=== PATIENT | male | born 1970 | race Caucasian/White ===

== ENCOUNTER 2023-04-30 06:18 | Observation (INO) ==
--- NOTE | 2023-03-20 11:22 | PAT Medication Instructions ---
Medication Instructions Date of Service March 20, 2023 Home Medications multivitamin (Daily Multi-Vitamin tablet) 1 tab PO QAM lisinopril 20 mg-hydrochlorothiazide 25 mg tablet 1 tab PO QAM bupropion HCl 300 mg 24 hr tablet, extended release 300 mg PO QAM ibuprofen 200 mg tablet 400 mg PO QAM PRN Pain ASK your surgeon for instructions ibuprofen 200 mg tablet 400 mg PO QAM PRN Pain DO NOT take the morning of surgery multivitamin (Daily Multi-Vitamin tablet) 1 tab PO QAM lisinopril 20 mg-hydrochlorothiazide 25 mg tablet 1 tab PO QAM Take morning of surgery With a small sip of water, OTHERWISE NOTHING TO EAT OR DRINK AFTER MIDNIGHT: bupropion HCl 300 mg 24 hr tablet, extended release 300 mg PO QAM Other Notes If you have any questions please call us at [phone] or [phone] or [phone] or [phone]
--- NOTE | 2023-04-01 09:20 | Anesthesiology Consultation ---
Date of Service April 01, 2023 Assessment & Plan (1) Encounter for pre-operative examination: - Infectious disease screening: Per assessment on 04/01/23: No known infectious disease contacts or current infectious disease symptoms. No noted recent Covid positive test result. - Outpatient joint assessment: Pt currently scheduled for inpatient pathway. If surgeon requests review for outpatient joint pathway, patient is not recommended candidate for outpatient joint program from anesthesia standpoint. Chart Review Chart Review: Acceptable Risk for Surgery and Patient seen in Pre Admission Testing Teaching & Discussion Pre-Anesthesia Teaching/Discussion Notes: Instructed NPO after midnight before surgery,except medications with 15 cc of water. Medication instructions provided according to the PAT guidelines. History Surgery Operation Date: 04/30/23 08:00 Proposed Procedures p Left Total Knee Arthroplasty - Naveen Winston DO Height/Weight Height: 5 ft 6 in Weight: 127.2 kg Allergies Allergy/AdvReac Type Severity Reaction Status Date / Time sulfamethoxazole Allergy Unknown blisters Verified 03/20/23 08:02 [From Bactrim] trimethoprim [From Bactrim] Allergy Unknown blisters Verified 03/20/23 08:02 Medications Home Medications Medication Instructions Recorded Confirmed Last Taken multivitamin (Daily Multi-Vitamin 1 tab PO QAM 11/10/18 03/20/23 10/02/20 tablet) lisinopril 20 1 tab PO QAM 10/02/20 03/20/23 10/02/20 mg-hydrochlorothiazide 25 mg tablet bupropion HCl 300 mg 24 hr tablet, 300 mg PO QAM 03/20/23 03/20/23 Unknown extended release ibuprofen 200 mg tablet 400 mg PO QAM PRN Pain 03/20/23 03/20/23 Unknown Past Medical History Medical History Morbid obesity Post traumatic stress disorder related to history Depression Anxiety Hypertension Exercise / Class Metabolic Activity II 4-5 Yardwork/Stairs/Walk up hill (one FS (no CP, no SOB)) Past Family History Family History Grandmother Breast cancer Grandfather Myocardial infarction Mother Kidney stones Father Hypertension Seizure Past Surgical History Surgical History Hx of umbilical hernia repair History of arthroscopy of both knees H/O wrist surgery right Past Anesthesia History No Hx of Anesthesia Complications and No Family Hx of Anesthesia Complications History of PONV No Hx of PONV and No Hx of Motion Sickness Social History Smoking Status: Never smoker Do You Dip or Chew Tobacco: Yes (Planning to quit 2 weeks prior to surgery- advised none DOS) Hx Alcohol Use: Yes alcohol intake frequency: holidays/special occasions only Hx Substance Use: No Review of Systems Patient denies chest pain, shortness of breath, dyspnea on exertion, fever, chills, cough, wheezing, palpitations. Physical Exam Vital Signs VITALS BP 145/84 P 98 TEMP 99.2 SP02 95%RA RESP 18 PHYSICAL Full cervical extension range of motion. Full TMJ range of motion. TMD 3 finger breaths Mallampati Score 1 Dentition: upper right side tooth + molars missing Lungs: clear throughout to auscultation Cardiac: regular rate and rhythm, no murmurs noted Spine: normal Carotid arteries: negative bruit Extremities: no LE edema Short, thick neck Lab Results Anesthesia Preop Results Results Anesthesia Widget: WBC 6.71 K/ul (4.8-10.8) 04/01/23 Hgb 15.9 g/dl (14.0-18.0) 04/01/23 Hct 48.0 % (42.0-52.0) 04/01/23 Plt 262 K/uL (130-400) 04/01/23 Na 139 mmol/L (136-145) 04/01/23 K 3.7 mmol/L (3.5-5.1) 04/01/23 Cl 102 mmol/L (98-107) 04/01/23 CO2 28 mmol/L (21-32) 04/01/23 BUN 25 mg/dl (6-23) H 04/01/23 Creat 0.90 mg/dl (0.6-1.4) 04/01/23 Glucose Level 130 mg/dl (70-99(Fasting)) H 04/01/23 PT 11.6 Seconds (9.0-12.0) 04/01/23 PTT 27 Seconds (21-31) 04/01/23 INR 1.1 (0.9-1.1) 04/01/23 HA1c 5.6 % (4.5-5.6) 04/01/23 Urine Color Yellow 04/01/23 Urine Appearance Clear (Clear) 04/01/23 Urine pH 6.5 (4.5-7.5) 04/01/23 Urine Specific Downs 1.013 (1.000-1.030) 04/01/23 Urine Protein Negative (Negative) 04/01/23 Urine Glucose (UA) Negative (Negative) 04/01/23 Urine Ketones Negative (Negative) 04/01/23 Urine Blood Negative (Negative) 04/01/23 Urine Nitrite Negative (Negative) 04/01/23 Urine Bilirubin Negative (Negative) 04/01/23 Urine Urobilinogen Negative (Negative) 04/01/23 Urine Leukocyte Esterase Trace (Negative) H 04/01/23 Urine WBC (Auto) 1-5 /hpf (0-5) 04/01/23 Urine RBC (Auto) 0-4 /hpf (0-4) 04/01/23 Urine Hyaline Casts (Auto) 0 /lpf (0-5) 04/01/23 Urine Epithelial Cells (Auto) 0-5 /lpf (0-5) 04/01/23 Urine Bacteria (Auto) Negative (Negative) 04/01/23 Blood Type B Positive 04/01/23 Antibody Screen NEGATIVE 04/01/23 Testing Electrocardiogram Date: 04/01/23 Findings: + NSR @ (97) Chest X-Ray Date: 04/01/23 FINDINGS: Lung volumes are normal. Lungs are clear. There is no pneumothorax or pleural effusion. There is mild cardiomegaly. Mediastinal contours are normal. There is no evidence for pulmonary edema. IMPRESSION: No acute cardiopulmonary findings. Stress Test Date: 04/03/20 Type: exercise Stress echo negative for inducible ischemia. Exercise capacity is average. No significant valvular heart disease noted on the resting study. 93% MPHR. 8.2 METS. LVEF 55-59%. LV wall motion is normal. No significant valvular disease.
--- NOTE | 2023-04-01 13:03 | History & Physical Report ---
Date of Service April 01, 2023 date of surgery: 04/30/23 Procedure: Left Total Knee Arthroplasty Surgeon: Naveen Winston DO Assessment & Plan (1) Arthritis of knee, left: Plan: Patient presented today for preop evaluation prior to his upcoming left total kn ee arthroplasty. Scheduled for an overnight stay at [facility] with discharge home the following day with home health physical therapy. Will place him on aspirin 81 mg twice a day for 1 month postop, follow-up in the office 2 weeks after surgery or sooner if he is having any issues. He otherwise has no other questions or concerns The risks and benefits have been discussed including, but not limited to, risk of infection, nerve injury, stiffness, loss of motion, failure to improve, etc. Reasonable outcomes and options of treatment were discussed. An explanation of appropriate alternatives to the procedure that may be advantageous were discussed and their risks and benefits, as well as the risks and benefits of not proceeding with treatment. I offered to answer any additional inquiries concerning the treatment involved. All the patient's questions were answered. The patient is agreeable, understanding of the treatment plan and alternatives, and wishes to proceed with the treatment plan. Please note the above document was generated using voice recognition software. It may contain grammatical, syntax or spelling errors. Any formal questions or concerns about the content, text or information contained within the body of this dictation should be directly addressed to the provider for clarification History of Present Illness Chief Complaint: left knee pain Primary Care Provider: Rajat Martini DO Morteza is a pleasant 53-year-old male who presented for preop evaluation prior to his upcoming left total knee arthroplasty. He has a longstanding history of left knee pain which gradually worsened and is now affecting his daily activities including walking standing using stairs. He had an injury to the knee approximate 40 years ago while playing baseball but over time is gradually worsened. He has been getting cortisone injections but these have stopped providing any relief. He has tried oral anti-inflammatories and Tylenol. At this point time is failed conservative measures and wished to proceed with a left total knee arthroplasty Allergies Allergy/AdvReac Type Severity Reaction Status Date / Time sulfamethoxazole Allergy Unknown blisters Verified 03/20/23 08:02 [From Bactrim] trimethoprim [From Bactrim] Allergy Unknown blisters Verified 03/20/23 08:02 Home Medications Medication Instructions Recorded Confirmed Type multivitamin (Daily Multi-Vitamin 1 tab PO QAM 11/10/18 03/20/23 History tablet) lisinopril 20 1 tab PO QAM 10/02/20 03/20/23 History mg-hydrochlorothiazide 25 mg tablet bupropion HCl 300 mg 24 hr tablet, 300 mg PO QAM 03/20/23 03/20/23 History extended release ibuprofen 200 mg tablet 400 mg PO QAM PRN Pain 03/20/23 03/20/23 History Past Med/Surg History Medical History Morbid obesity Post traumatic stress disorder related to history Depression Anxiety Hypertension Surgical History Hx of umbilical hernia repair History of arthroscopy of both knees H/O wrist surgery right Family History Grandmother Breast cancer Grandfather Myocardial infarction Mother Kidney stones Father Hypertension Seizure Social History Smoking Status: Never smoker Second Hand Exposure: No; Do You Dip or Chew Tobacco: Yes (Planning to quit 2 weeks prior to surgery- advised none DOS); Hx Alcohol Use: Yes Hx Substance Use: No Preferred Language: [place] Painting Technician Required: No Beliefs That Will Affect Care: None Current Living Situation: Spouse Feels Safe at Home: Yes Assistive Devices: Contacts and Glasses Review of Systems Review of Systems: All systems reviewed & are unremarkable except as noted in HPI & below Constitutional: no fever, no chills and no sweats Respiratory: no cough and no dyspnea Cardiovascular: no chest pain, no dyspnea and no orthopnea Gastrointestinal: no abdominal pain, no nausea and no vomiting Musculoskeletal: as per Subjective / HPI Physical Exam Physical Exam: HT: 5ft 6in WT: 127 kg Constitutional: WD/WN, vitals as above no acute distress Respiratory: normal respiratory effort, lungs clear to auscultation no respiratory distress, no labored breathing and does not use accessory muscles Cardiovascular: RRR, no murmur, no edema Gastrointestinal (Abdomen): normal bowel sounds, soft, nontender, no hepatosplenomegaly Musculoskeletal: Knee: + knee abnormal to inspection (LEFT KNEE: ), + effusion (+1 effusion), + limited ROM of knee (ROM 0/3/110), + knee ROM with crepitation, + joint line tenderness (medial joint line) and + Rachid's sign positive; no deformity, no skin erythema, no ecchymosis, no valgus laxity, no varus laxity, anterior drawer test negative, Augusto's sign negative and pivot shift test negative Results & Data Results & Data Diagnostic Findings Left Knee X-ray: left knee series confirm advanced degenerative changes to the left knee, greatest medial compartments and patellofemoral joint, showing joint space narrowing, osteophyte formation and subchondral sclerosis. no acute bony pathology noted.
[2023-04-30] MEDS ORDERED: BUPIVACAINE 0.5 % 5 MG/1 ML PF 10ML VIAL ONE (06:23)
[2023-04-30] MEDS ORDERED: BUPIVACAINE 0.25% PF 30 ML VIAL ONE (06:24)
[2023-04-30] MEDS: ACETAMINOPHEN 500 MG TAB PO SCH ×2 (06:53→13:40)
[2023-04-30] MEDS: METOCLOPRAMIDE HCL 10 MG TABLET PO SCH (06:53)
[2023-04-30] MEDS: dexAMETHasone**PF** 10 MG/ML VIAL IV SCH (06:53)
[2023-04-30] MEDS: GABAPENTIN 300 MG CAP PO SCH (06:53)
[2023-04-30] MEDS: FAMOTIDINE 20 MG TAB PO SCH (06:53)
[2023-04-30] MEDS: LR 60ML/HR IV SCH (06:54)
--- NOTE | 2023-04-30 06:59 | History & Physical Bridge Note ---
Date of Service April 30, 2023 History & Physical Bridge Note I have examined the patient, reviewed the History & Physical and in the interval since the performance of the History & Physical I have noted the following changes of clinical significance: no changes noted
[2023-04-30] MEDS ORDERED: ONDANSETRON INJ 2 MG/ML 2 ML VIAL ONE (07:22)
[2023-04-30] MEDS ORDERED: fentaNYL citrate PF 100 MCG/2 ML VIAL ONE (07:22)
[2023-04-30] MEDS ORDERED: MIDAZOLAM HCL 1 MG/ML 2ML VIAL ONE ×2 (07:22→08:32)
[2023-04-30] MEDS ORDERED: PROPOFOL IV EMULSION 10 MG/ML 20 ML VIAL IV ONE ×2 (07:22)
[2023-04-30] MEDS ORDERED: LIDOCAINE 2% 2 ML VIAL/AMP(20MG/ML) INFIL ONE (07:22)
[2023-04-30] MEDS ORDERED: DEXAMETHASONE SOD INJ 4 MG/ML VIAL ONE (07:22)
[2023-04-30] MEDS: LR 500ML BOLUS, THEN 15ML/HR IV SCH (07:22)
[2023-04-30] MEDS ORDERED: fentaNYL citrate PF 100 MCG/2 ML VIAL IV PRN (07:50)
[2023-04-30] MEDS ORDERED: ONDANSETRON INJ 2 MG/ML 2 ML VIAL IV PRN ×2 (07:50→11:37)
[2023-04-30] MEDS ORDERED: ePHEDrine sulfate 50 MG/ML AMP IV PRN (07:50)
[2023-04-30] MEDS ORDERED: ATROPINE SULFATE 0.1 MG/ML 10ML SYR IV PRN (07:50)
[2023-04-30] MEDS: TRANEXAMIC ACID 1,000 MG **IV Pre-op IV SCH (08:05)
[2023-04-30] MEDS: ROPIV 0.5% 246mg, Ketorolac 30mg, EPINEPHrine 0.5mg in NSS INFIL SCH (08:52)
[2023-04-30] MEDS: ORTHO JOINT ANESTHETIC ONE (08:52)
[2023-04-30] MEDS ORDERED: PHENYLEPHRINE 100MCG/ML 10ML SYR IV ONE (08:57)
[2023-04-30] MEDS: TRANEXAMIC ACID 1,000 MG **IV Intra-op IV SCH (09:40)
--- NOTE | 2023-04-30 09:41 | Operative Report ---
Post Operative Report Pre & Post Diagnosis Operation Date: 04/30/23 08:00 Pre-Op Diagnosis: Left Knee Osteoarthritis Post-Op Diagnosis: Left Knee Osteoarthritis I identified the patient and participated in the time-out.: Yes Procedure Operation Date: 04/30/23 08:00 Actual Procedures p Left Total Knee Arthroplasty(Left)Utilizing [employer] journey 2 patient- matched total knee arthroplasty size femur 4 tibia 4 poly 15 patella 32 parth - Naveen Winston DO Surgeon Naveen Winston DO Manpower Development Manager Sunny BURNHAM Estimated Blood Loss 5 Findings Consistent with Post-Op Diagnosis Patient presents with severe end-stage degenerative joint disease of the left knee nonresponse to conservative management patient has approximate 10 to be degree hyperextension angle to his knee with recurvatum is eburnated bone -on-bone marginal osteophytes subchondral sclerosis eburnated bone to bone with a moderate to large osteophytes and a moderate to large effusion Specimens Bone card cartilage Drains Medium bore Hemovac Anesthesia Type MAC Spinal Regional Complications none Disposition Accompanied Patient To Recovery: No Disposition: Recovery Room Indications Patient presents with severe end-stage tricompartmental degenerative joint disease of the left knee nonresponse to conservative management patient failed attempted corticosteroid injection viscosupplementation relative rest activity modification above intraoperative findings were noted Description of Procedure After proper prepping and draping of the left lower extremity anterior midline incision was made over the region of the extensor extensor mechanism after meticulous hemostasis was obtained and maintained in subcutaneous tissues a medial parapatellar incision was made The patella was subluxed lateralward the medial lateral gutter were cleaned from any hypertrophic synovitis and scar tissue of the distal femoral block was placed and the distal femoral osteotomy cut was made subsequently the chamfers anterior and posterior osteotomy cuts were made utilizing the 4-in-1 block the tibia was subsequently subluxed anteriorward medial and ateral meniscal remnants were excised in their entirety remnants of the anterior and posterior cruciate ligaments were excised in their entirety excellent exposure of the proximal tibia was obtained the tibial osteotomy guide was placed on the proximal tibial osteotomy cut was made once again the knee was irrigated with copious amounts of sterile saline solution the patella was subsequently everted lateralward thickened scar tissue around the patella was removed the patella was subsequently cut utilizing a freehand technique and was drilled prepared for final preparation and placement of patella socially flexion-extension gaps were checked and the equal and symmetric trials were placed to the appropriate femoral and tibial trials with poly-spacer being placed for equal flexion and extension gaps and full range of motion including extension to 0 and flexion to 140 the trial components after having been taken to recovery range of motion was subsequently removed meticulous hemostasis was obtained and maintained subsequently a knee block injection of joint cocktail including ropivacaine 0.5% 150 mg. Bupivacaine 0.5% epinephrine 1-200,030 mL's toradol 30 mg dexamethasone 4 mg ketamine 10 mg clonidine 100 micrograms normal saline solution 30 mg was infiltrated into the soft tissues of the posterior knee medial lateral gutters and periosteal synovium special attention was paid to protect neurovascular structures at all times subsequently trial components having been removed the knee was irrigated with sterile saline solution. debris was removed the proximal tibia was subsequently prepared and was made ready for the placement of the tibial component tibial component was also cemented and tamped into position the femoral component was subsequently placed and cemented in the position the patellar component was subsequently cemented in position because hemostasis once again obtained and maintained wound having been thoroughly irrigated with debridement and debridement lavage was performed as well as a medial parapatellar incision closed with #1 Vicryl in interrupted fashion subcutaneous was closed with #2 Vicryl skin was closed with skin clips. PA-C was necessary for prepping and drapping as well as wound closure of deep fascia Sub cutaneous tissue and skin and was necessary for the case. A sterile compressive dressing was placed patient was taken to recovery in stable condition of report dictated by Catrachito I attest to the content of the Intraoperative Record and any orders documented therein. Any exceptions are noted below.Due to the complex nature of the procedure, the entire surgery was performed with the operational assistance of TEJ Otto. The therapeutic recreation assistant, under direct supervision, was involved in the actual performance of all aspects of the surgical procedure including hemostasis, tissue retraction and incision, instrument management, patient positioning, and wound closure. I attest to the content of the Intraoperative Record and any orders documented therein. Any exceptions are noted below.
--- NOTE | 2023-04-30 10:39 | XRay Report ---
TWO VIEWS LEFT KNEE CLINICAL HISTORY: Postoperative examination. FINDINGS: AP and crosstable lateral portable views of the left knee are obtained. A left knee arthrop lasty is in near anatomic alignment. There has been undersurface remodeling of the patella. No acute fracture is seen. There are expected postoperative changes around the knee including a surgical drain , soft tissue edema, and subcutaneous gas. IMPRESSION: Expected postoperative changes status post left knee arthroplasty. No acute fracture is s een. ACT 112: Negative or not required by law. Electronically signed by: Berto Brooke M.D. 04/30/2023 10:38 AM
[2023-04-30] MEDS ORDERED: METOCLOPRAMIDE HCL INJ 5 MG/ML 2 ML VIAL IV PRN (11:37)
[2023-04-30] MEDS ORDERED: NALOXONE HCL 0.4 MG/1 ML VIAL/CARP IV PRN (11:37)
[2023-04-30] MEDS ORDERED: MAGNESIUM HYDROXIDE SUSP 30 ML UDC PO PRN (11:37)
[2023-04-30] MEDS ORDERED: HYDROmorphone INJ 1 MG/ML SYRINGE IV PRN (11:37)
[2023-04-30] MEDS ORDERED: diphenhydrAMINE Capsule 25 MG CAP PO PRN (11:37)
[2023-04-30] MEDS ORDERED: bisacodyL 10 MG SUPP PR PRN (11:37)
[2023-04-30] MEDS: SODIUM CHLORIDE 0.9% 1,000 ML IV SCH (12:33)
[2023-04-30] MEDS: KETOROLAC 30 MG/ML VIAL IV SCH (12:33)
--- NOTE | 2023-04-30 15:08 | Anesthesiology Progress Note ---
Date of Service April 30, 2023 Anesthesia Post Procedure Vital Signs Vital Signs: Temp Pulse Pulse Resp BP Pulse Ox O2 Del Method 04/30/23 14:18 36.8 C 98 H 17 135/74 95 Room Air 04/30/23 13:38 36.9 C 113 H 18 116/68 96 Room Air 04/30/23 12:31 36.5 C 115 H 17 128/72 95 Room Air 04/30/23 12:02 90 18 145/65 H 96 Room Air 04/30/23 11:30 37.0 C 82 17 142/76 H 95 Room Air 04/30/23 11:15 80 16 115/71 94 Room Air 04/30/23 11:00 85 15 134/69 94 Room Air 04/30/23 10:50 90 16 114/67 95 Room Air 04/30/23 10:40 36.5 C 84 18 125/79 96 Room Air 04/30/23 10:30 89 16 116/71 97 Oxymask 04/30/23 10:20 90 14 127/71 97 Oxymask 04/30/23 10:10 36.8 C 92 H 12 95/58 L 95 Oxymask 04/30/23 06:49 37.1 C 107 H 22 140/99 96 Room Air O2 Flow Rate 04/30/23 14:18 04/30/23 13:38 04/30/23 12:31 04/30/23 12:02 04/30/23 11:30 04/30/23 11:15 04/30/23 11:00 04/30/23 10:50 04/30/23 10:40 04/30/23 10:30 4 04/30/23 10:20 4 04/30/23 10:10 6 04/30/23 06:49 Transfer of Care Handoff Completed per policy Notes Mental Status: alert / awake / arousable and participated in evaluation Patient Amnestic to Procedure: Yes Nausea / Vomiting: adequately controlled Pain: adequately controlled Airway Patency, RR, SpO2: stable & adequate BP & HR: stable & adequate Hydration State: stable & adequate Neuraxial Anesthesia: was administered and sensory block is resolving Anesthetic Complications: no major complications apparent and Pt Satisfied with anesthetic care
[2023-04-30] MEDS: ceFAZolin 2000MG 2,000 MG/15 ML SYR IV SCH (16:48)
[2023-04-30] MEDS: oxyCODONE HCL IR 5 MG TAB (IMMEDIATE RELEASE) PO PRN (18:26)
[2023-04-30] MEDS: DOCUSATE SODIUM 100 MG CAP PO SCH (20:11)
[2023-04-30] MEDS: SENNA 8.6 MG TAB PO SCH (20:12)
[2023-04-30] MEDS: ASPIRIN 81 MG ECTAB PO SCH (20:12)
[2023-05-01 06:42] LABS: Hematocrit (blood only) 37.5 % (42.0-52.0); Hemoglobin 12.8 g/dl (14.0-18.0); Mean Corpuscular Hemoglobin 28.6 pg (25.0-34.0); Mean Corpuscular Hgb Conc 34.1 g/dL (32.0-36.0); Mean Corpuscular Volume 83.7 fL (80.0-100.0); Mean Platelet Volume 9.3 fL (9.4-12.4); Platelet Count 299 K/uL (130-400); RDW Coefficient of Variation 11.9 % (11.5-14.5); RDW Standard Deviation 36.1 fL (36.4-46.3); Red Blood Count 4.48 M/uL (4.70-6.10)
--- NOTE | 2023-05-01 06:53 | Orthopedic Progress Note ---
Date of Service May 01, 2023 Assessment & Plan (1) History of total left knee replacement: Plan: POD #1 s/p Left TKA pt/ot dvt proph with [facility]/SCD/ASA plan for d/c home with HHPT after PT today Admission and Anticipated Discharge Date Admission Date: April 30, 2023 Subjective POD #1 s/p Left TKA Review of Systems Constitutional: no fever, no chills and no sweats Respiratory: no cough and no dyspnea Cardiovascular: no chest pain and no dyspnea Gastrointestinal: no abdominal pain, no nausea and no vomiting Physical Exam Physical Exam: Vital Signs Temp Pulse Pulse Resp BP Pulse Ox O2 Del Method 05/01/23 04:32 36.8 C 88 16 117/61 98 Room Air 04/30/23 23:20 36.4 C L 78 16 113/78 98 Room Air 04/30/23 21:40 Room Air 04/30/23 20:10 36.8 C 83 16 117/64 95 Room Air 04/30/23 18:20 37.2 C 94 H 18 130/79 96 Room Air 04/30/23 14:18 36.8 C 98 H 17 135/74 95 Room Air 04/30/23 13:38 36.9 C 113 H 18 116/68 96 Room Air 04/30/23 12:31 36.5 C 115 H 17 128/72 95 Room Air 04/30/23 12:02 90 18 145/65 H 96 Room Air 04/30/23 11:30 37.0 C 82 17 142/76 H 95 Room Air 04/30/23 11:15 80 16 115/71 94 Room Air 04/30/23 11:00 85 15 134/69 94 Room Air 04/30/23 10:50 90 16 114/67 95 Room Air 04/30/23 10:40 36.5 C 84 18 125/79 96 Room Air 04/30/23 10:30 89 16 116/71 97 Oxymask 04/30/23 10:20 90 14 127/71 97 Oxymask 04/30/23 10:10 36.8 C 92 H 12 95/58 L 95 Oxymask O2 Flow Rate 05/01/23 04:32 04/30/23 23:20 04/30/23 21:40 04/30/23 20:10 04/30/23 18:20 04/30/23 14:18 04/30/23 13:38 04/30/23 12:31 04/30/23 12:02 04/30/23 11:30 04/30/23 11:15 04/30/23 11:00 04/30/23 10:50 04/30/23 10:40 04/30/23 10:30 4 04/30/23 10:20 4 04/30/23 10:10 6 Intake and Output 04/30/23 04/30/23 05/01/23 14:59 22:59 06:59 Intake Total 1739.167 / 3739.16 7 1999 / 3739.167 Output Total 5 / 305 200 / 305 100 / 305 Balance 1734.167 / 3434.16 7 1800 / 3434.167 -100 / 3434.167 Intake: IV 439.167 / 439.167 Lactated Ringe r's 1,000 ml @ 15 0 / 0 mls/hr IV .Q24 H MAGY Rx#: [id number] Sodium Chlorid e 0.9% 1,000 ml @ 166.667 / 166.667 100 mls/hr IV .Q10H MAGY Rx#: [id number] Tranexamic Aci d / 0.7% NaCl 1, 200 / 200 000 mg In 100 ml @ 600 mls/hr IV TODAY@0600 MAGY Rx#:[id number] ceFAZolin 3000 MG 72.5 ml @ 130 72.5 / 72.5 mls/hr IV PREO P MAGY Rx#: [id number] IV Perioperative 1300 / 1300 Oral 1999 / 1999 Output: Estimated Blood Loss 5 / 5 Drain Output 200 / 300 100 / 300 Left Knee Hemo vac 200 / 300 100 / 300 Other: # Unmeasured Voi ds 1 1 Weight 122.2 kg Patient Weight 05/01/23 06:59 Weight 122.2 kg Musculoskeletal: Left Leg: NVDI, calf SNT, negative federico sign. DP palpable, able to wiggle toes/ankle movement without difficulty. dressing clean dry and intact. Results & Data Vital Signs (Past 12 Hours) Vital Signs Temp Pulse Resp BP Pulse Ox O2 Del Method 05/01/23 04:32 36.8 C 88 16 117/61 98 Room Air 04/30/23 23:20 36.4 C L 78 16 113/78 98 Room Air 04/30/23 21:40 Room Air 04/30/23 20:10 36.8 C 83 16 117/64 95 Room Air Laboratory Results Laboratory Results WBC 16.10 K/ul (4.8-10.8) H 05/01/23 05:35 RBC 4.48 M/uL (4.70-6.10) L 05/01/23 05:35 Hgb 12.8 g/dl (14.0-18.0) L 05/01/23 05:35 Hct 37.5 % (42.0-52.0) L 05/01/23 05:35 MCV 83.7 fL (80.0-100.0) 05/01/23 05:35 MCH 28.6 pg (25.0-34.0) 05/01/23 05:35 MCHC 34.1 g/dL (32.0-36.0) 05/01/23 05:35 RDW Std Deviation 36.1 fL (36.4-46.3) L 05/01/23 05:35 RDW Coeff of Minerva 11.9 % (11.5-14.5) 05/01/23 05:35 Plt Count 299 K/uL (130-400) 05/01/23 05:35 MPV 9.3 fL (9.4-12.4) L 05/01/23 05:35 Impressions Knee X-Ray 04/30/23 10:13 TWO VIEWS LEFT KNEE CLINICAL HISTORY: Postoperative examination. FINDINGS: AP and crosstable lateral portable views of the left knee are obtained. A left knee arthroplasty is in near anatomic alignment. There has been undersurface remodeling of the patella. No acute fracture is seen. There are expected postoperative changes around the knee including a surgical drain, soft tissue edema, and subcutaneous gas. IMPRESSION: Expected postoperative changes status post left knee arthroplasty. No acute fracture is seen. ACT 112: Negative or not required by law. Electronically signed by: Berto Brooke M.D. 04/30/2023 10:38 AM
--- NOTE | 2023-05-01 07:02 | Discharge Summary ---
Date of Service date of discharge: May 01, 2023 date of admission: 04/30/23 Admission HPI Per Admitting Provider Morteza is a pleasant 53-year-old male who presented for preop evaluation prior to his upcoming left total knee arthroplasty. He has a longstanding history of left knee pain which gradually worsened and is now affecting his daily activities including walking standing using stairs. He had an injury to the knee approximate 40 years ago while playing baseball but over time is gradually worsened. He has been getting cortisone injections but these have stopped providing any relief. He has tried oral anti-inflammatories and Tylenol. At this point time is failed conservative measures and wished to proceed with a left total knee arthroplasty Principal Diagnosis left knee osteoarthritis Discharge Exam Vital Signs Temp Pulse Pulse Resp BP Pulse Ox O2 Del Method 05/01/23 04:32 36.8 C 88 16 117/61 98 Room Air 04/30/23 23:20 36.4 C L 78 16 113/78 98 Room Air 04/30/23 21:40 Room Air 04/30/23 20:10 36.8 C 83 16 117/64 95 Room Air 04/30/23 18:20 37.2 C 94 H 18 130/79 96 Room Air 04/30/23 14:18 36.8 C 98 H 17 135/74 95 Room Air 04/30/23 13:38 36.9 C 113 H 18 116/68 96 Room Air 04/30/23 12:31 36.5 C 115 H 17 128/72 95 Room Air 04/30/23 12:02 90 18 145/65 H 96 Room Air 04/30/23 11:30 37.0 C 82 17 142/76 H 95 Room Air 04/30/23 11:15 80 16 115/71 94 Room Air 04/30/23 11:00 85 15 134/69 94 Room Air 04/30/23 10:50 90 16 114/67 95 Room Air 04/30/23 10:40 36.5 C 84 18 125/79 96 Room Air 04/30/23 10:30 89 16 116/71 97 Oxymask 04/30/23 10:20 90 14 127/71 97 Oxymask 04/30/23 10:10 36.8 C 92 H 12 95/58 L 95 Oxymask O2 Flow Rate 05/01/23 04:32 04/30/23 23:20 04/30/23 21:40 04/30/23 20:10 04/30/23 18:20 04/30/23 14:18 04/30/23 13:38 04/30/23 12:31 04/30/23 12:02 04/30/23 11:30 04/30/23 11:15 04/30/23 11:00 04/30/23 10:50 04/30/23 10:40 04/30/23 10:30 4 04/30/23 10:20 4 04/30/23 10:10 6 Intake and Output 04/30/23 05/01/23 05/01/23 22:59 06:59 14:59 Intake Total 1999 / 9.167 Output Total 200 / 305 100 / 305 Balance 1799 / 3434.167 - / 3434.167 Intake: Oral 1999 Output: Drain Output 200 / 300 100 / 300 Left Knee Hemovac 200 / 300 100 / 300 Other: # Unmeasured Voids 1 1 Musculoskeletal left knee: NVDI, calf SNT, negative federico sign. DP palpable, able to wiggle toes/ankle movement without difficulty. DENIS dressing clean dry and intact. Discharge Data Allergies Allergy/AdvReac Type Severity Reaction Status Date / Time sulfamethoxazole Allergy Unknown blisters Verified 04/30/23 06:51 [From Bactrim] trimethoprim [From Bactrim] Allergy Unknown blisters Verified 04/30/23 06:51 Procedures Performed Operation Date: 04/30/23 08:00 Actual Procedures p Left Total Knee Arthroplasty(Left) - Naveen Patricio DO Ordered Studies 04/30/23 05:00 US - OR guided needle placemen Routine Hospital Course (1) History of total left knee replacement: POD #1 s/p Left TKA pt/ot dvt proph with MARY ALICE/SCD/ASA plan for d/c home with HHPT after PT today Total Time Total Time Spent Total Time Spent (In Minutes): 20 Discharge Plan Discharge Items Patient Disposition: Home - Home Health Services Reason For Visit: Left Knee Osteoarthritis Discharge Diagnosis: LEFT TOTAL KNEE REPLACEMENT Activity: Per Instructions section Weightbearing Comment: WBAT WITH WALKER Non-emergency contact: Surgeon Call non-emergency contact if: you have any medication questions, your temperature is above 101, your wound has increased redness, your wound has increased drainage and your wound pain has increased Follow-up/Referrals: Vini Machado MD [Primary Care Provider] - Diet: Regular Addtl Attending Provider Instructions: ACTIVITY RECOMMENDATIONS: SELF CARE INSTRUCTIONS AFTER TOTAL KNEE REPLACEMENT A. You may need to continue a physical therapy program after discharge from the hospital. There are several options available to you. Your doctor will assist you in selecting the best one for you. 1. An out-patient facility 2 to 3 times a week for therapy or home therapy. 2. Continue working on all exercises taught to you in the hospital. Your goals should be to increase bending of your knee to 90 degrees and beyond and to fully straighten your knee. B. You may progress at your own pace from walking with a walker or crutches to a cane; then to no assistive devices. C. Make walking a part of your daily routine. Be up as much as comfortable with rest periods throughout the day. Rest with leg elevation is very important. Use the ice wrap frequently for the first 3-4 weeks. D. There are no restrictions on activities. You may ride in a car, shop, participate in clay transporter and all social activities. E. Wear the long elastic stockings (MARY ALICE hose) 20 hours a day for 2 weeks after surgery. They can be removed several times a day for laundering and for a bath. F. You may shower, no tub baths until cleared by your doctor. SPECIAL CARE INSTRUCTIONS: VERY IMPORTANT TO READ AND REVIEW A. There are a few signs you need to watch for after you are home. Call [facility] if you notice any of the followin. Increased severe knee pain. Some pain is expected especially when you exercise. 2. Increased swelling in your leg or knee; pain or swelling of the calf muscle in either lower leg. 3. Any fluid drainage from the incision. 4. Shortness of breath or chest pain. B. Please call [facility] at if you have any concerns or questions about your operation or recovery. The doctor or his nurse will return your call promptly. C. You must take antibiotics before dental work, bladder, bowel or other surgery. Your doctor will provide you with a permanent care to carry describing this precaution. IMPORTANT: * REMEMBER TO TAKE ASPIRIN, 81 MG, TWICE DAILY FOR 4 WEEKS UNLESS OTHERWISE DIRECTED. THIS IS YOUR BLOOD THINNER. * HIGH RISK PATIENTS MAY BE PRESCRIBED A STRONGER BLOOD THINNER. THIS WILL BE PROVIDED AT DISCHARGE. * CALL IF INCREASED PAIN, REDNESS, DRAINAGE OR FEVER GREATER THAT 101. * WEAR MARY ALICE HOSE 20 HOURS PER DAY FOR 2 WEEKS. DRESSING INSTRUCTIONS * DENIS Dressing- This is a large suction dressing covering your incision. This will help pull any excess drainage from the wound and allow your incision to heal properly. You may shower with this if you can keep the unit outside of the shower. If any bleeding or leakage is noted please call your doctor's office. This will remain on your incision for 7 days and then should be removed. This can be done yourself or by the home nursing staff if applicable. The entire unit is disposable once removed. Once removed, keep incision clean and dry. If redness or drainage is noted, please call your surgeon. ONCE DENIS IS REMOVED, FOLLOW THESE INSTRUCTIONS: DERMABOND Prineo- This is a mesh tape dressing that is covered with glue. It should remain in place until the incision is properly healed, usually 10-14 days. This dressing is designed to naturally slough off. You may trim the excess mesh tape as it peels off. Incision may be briefly wet in a shower. Dry immediately by blotting with a clean, dry towel. Do not bath or swim until instructed by your doctor. Do not scratch, rub, or pick at the dressing. Do not apply any topical ointments or lotions until dressing is completely removed and/or instructed by your doctor. There may be a small piece of suture material at one end of your incision. Do not pull or trim this. If it is bothersome or catching on clothing, you may cover it with a band-aid. IF INCISION IS LEAKING THROUGH DRESSING, CALL THE OFFICE . FOLLOW UP VISIT: If appointment is not already scheduled: Please call [facility] to make a follow-up appointment for 2 weeks after your surgery at . Pending Studies at Discharge: No Stand-Alone Forms: My [facility] [employer] Medications and DC Order Prescriptions: New aspirin 81 mg tablet,delayed release (DR/EC) 81 mg PO BID 30 Days Qty: 60 0RF acetaminophen 500 mg tablet 1,000 mg PO Q8 21 Days Qty: 126 0RF cefadroxil 500 mg capsule 500 mg PO BID 14 Days Qty: 28 0RF docusate sodium 100 mg Capsule 100 mg PO BID Qty: 20 0RF oxycodone 5 mg tablet 5 - 10 mg PO Q6H PRN (Reason: pain) Qty: 30 0RF Rx Instructions: ongoing therapy, supervising dr gurinder patricio. max 6 tabs in 24 hours. date of surgery 04/30/23 Continued multivitamin [Daily Multi-Vitamin] tablet 1 tab PO QAM lisinopril-hydrochlorothiazide 20-25 mg tablet 1 tab PO QAM bupropion HCl 300 mg Tablet Extended Release 24 Hr 300 mg PO QAM ibuprofen 200 mg Tablet 400 mg PO QAM PRN (Reason: Pain) Admission Data Admit Date/Time: 04/30/23 10:13 Attending Provider: Naveen Patricio Admit Provider: Naveen Patricio Primary Care Provider: Vini Machado
[2023-05-01 07:03] LABS: BUN Creatinine Ratio 26.1 (10-20); Calcium 9.3 mg/dl (8.6-10.3); Creatinine Clr Calc Pharmacy 122.4 ml/min; Est GFR (African American) 115.3 ml/min; Est GFR (Non-African American) 99.5 ml/min; Potassium 4.1 mmol/L (3.5-5.1)
[2023-05-01] MEDS: buPROPion XL 300 MG TABCR PO SCH (09:31)
[2023-05-01] MEDS: LISINOPRIL/HCTZ 20/25MG 1 TAB PO SCH (09:32)
[2023-05-01] MEDS: MULTIVITAMIN TAB PO SCH (09:32)
== END 2023-05-01 10:59 | disposition home or self-care (01) ==
LOC: 3E 06:18 → ASU 06:18